=== PATIENT | female | born 1955 | race Asian ===

== ENCOUNTER 2022-06-06 06:46 | Emergency (ER) | payer OTHER ==
[~2022-06-06] VITALS: Ht 154.9 cm; Wt 49.9 kg
[2022-06-06 06:59] VITALS: BP_SYST 129
[2022-06-06] MEDS ORDERED: LIDOCAINE MPF 2% 5mL VIAL INJ ONE (07:00)
[2022-06-06] MEDS ORDERED: LIDOCAINE 1%, 20 ML MDV 20 ML ONE (08:05)
[2022-06-06] MEDS ORDERED: BACI15OI13 TP (08:24)
[2022-06-06] MEDS ORDERED: DIPHTH,PERTUSS(ACELL),TET VAC 0.5 ML VIAL (Tdap) I.M. ONE (08:30)
[2022-06-06] MEDS ORDERED: BACITRACIN 1 GM OINT TP ONE (08:30)
[2022-06-06 08:37] VITALS: BP_SYST 126
== END 2022-06-06 08:37 | disposition home or self-care (01) ==
LOC: SED 06:46
DX: S61.412A Laceration without foreign body of left hand, initial encounter (principal); Z79.899 Other long term (current) drug therapy; W26.0XXA Contact with knife, initial encounter; Y93.89 Activity, other specified; Y92.89 Other specified places as the place of occurrence of the external cause; Y99.8 Other external cause status
CPT/HCPCS: 99282; 12001; J2001; 90715